=== PATIENT | female | born 1935 | race Caucasian/White ===

== ENCOUNTER → 2020-05-18 | Outpatient (CLI) | payer MEDICARE, OTHER ==
[~2020-05-18] MED LIST: ACID1TAB7 PO; AMLO-150 PO; ASPI81TA45 PO; ATOR40TA78 PO; BETA15OI6 TP; CARV3.1212 PO; COLE625T12 PO; FLUC200T PO; HYDR25TA6 PO; LATA2.5D4 EACHEYE; LEVO25TA4 PO; LISI-167 PO; LOPE2CAP PO; LOSA50TA14 PO; PRESERVISION PO; SIMV40TA20 PO; TIOT18CA INH; TIOT4MIS5 INH
== END | disposition home or self-care (01) ==
LOC: CFH 13:09
PROVIDERS: ATTEND Registered Nurse
DX: R91.8 Other nonspecific abnormal finding of lung field (principal); J96.11 Chronic respiratory failure with hypoxia; J47.9 Bronchiectasis, uncomplicated
CPT/HCPCS: 71250

== ENCOUNTER 2020-12-14 07:23 | Day surgery (SDC) | payer MEDICARE, OTHER ==
[~2020-12-14] VITALS: Ht 160 cm; Wt 54.6 kg
[2020-12-14 08:48] VITALS: BP 184/82
[2020-12-14] MEDS ORDERED: SODIUM CHLORIDE 0.9% 1,000 ML IV SCH ×2 (09:00)
[2020-12-14 09:06] LABS: INTERNATIONAL NORMALIZED RATIO 1.15 (0.93-1.1); PROTHROMBIN TIME 12.2 Seconds (9.6-11.5)
[2020-12-14 09:58] VITALS: BP 190/93
[2020-12-23] MEDS ORDERED: SODI325T PO (23:16)
[2020-12-23] MEDS ORDERED: SIMV5TAB14 PO (23:16)
[2020-12-27] MEDS ORDERED: VANC1VIA36 PO ×2 (10:13)
[2020-12-27] MEDS ORDERED: CARV3.1212 PO (10:13)
[2020-12-27] MEDS ORDERED: HYDR-3342 PO (10:13)
[2020-12-27] MEDS ORDERED: VANC250C12 PO (16:26)
== END 2020-12-14 10:25 | disposition home or self-care (01) ==
LOC: OUT 07:23
PROVIDERS: ATTEND Internal Medicine Nephrology
DX: I12.9 Hypertensive chronic kidney disease with stage 1 through stage 4 chronic kidney disease, or unspecified chronic kidney disease (principal); N18.9 Chronic kidney disease, unspecified; Z53.8 Procedure and treatment not carried out for other reasons; D64.9 Anemia, unspecified; E78.5 Hyperlipidemia, unspecified; K21.9 Gastro-esophageal reflux disease without esophagitis; Z79.899 Other long term (current) drug therapy; Z87.891 Personal history of nicotine dependence; Z88.0 Allergy status to penicillin
CPT/HCPCS: 36415; 85610; J7030

== ENCOUNTER 2020-12-23 23:01 | Inpatient (IN) | payer MEDICARE, OTHER ==
[~2020-12-23] VITALS: Ht 162.6 cm; Wt 56.0 kg
[2020-12-27 18:33] VITALS: BP 159/80
== END 2020-12-27 19:00 | disposition home health service (06) | DRG 281 ==
LOC: ED 23:06 → EDIP 12-24 01:52 → 5SO 12-24 13:38 → 4NW 12-26 16:10 → 5SO 12-26 16:25 → 4NE 12-26 20:11
PROVIDERS: ADMIT Internal Medicine; ATTEND Family Medicine
DX: I16.1 Hypertensive emergency (principal); I21.A1 Myocardial infarction type 2; N17.9 Acute kidney failure, unspecified; A04.72 Enterocolitis due to Clostridium difficile, not specified as recurrent; I43 Cardiomyopathy in diseases classified elsewhere; I50.30 Unspecified diastolic (congestive) heart failure; J96.11 Chronic respiratory failure with hypoxia; N18.4 Chronic kidney disease, stage 4 (severe); E88.01 Alpha-1-antitrypsin deficiency; I48.91 Unspecified atrial fibrillation; Z20.822 Contact with and (suspected) exposure to COVID-19; E03.9 Hypothyroidism, unspecified; I37.1 Nonrheumatic pulmonary valve insufficiency; I13.0 Hypertensive heart and chronic kidney disease with heart failure and stage 1 through stage 4 chronic kidney disease, or unspecified chronic kidney disease; J44.9 Chronic obstructive pulmonary disease, unspecified; I25.2 Old myocardial infarction; Z88.0 Allergy status to penicillin